=== PATIENT | female | born 1995 | race Caucasian/White ===

== ENCOUNTER 2023-08-16 07:45 | Day surgery (SDC) | payer MEDICAID, SELFPAY ==
[2023-08-12] MEDS: fentaNYL 100 MCG/2 ML VIAL IVP (10:15)
[2023-08-16] VITALS (11 sets, daily range): BP systolic 81–137; BP diastolic 36–80; PULSE 71–85; RESP 16–21; TEMP 36.2–37; O2SAT 95–100; BMI 29.8
--- NOTE | 2023-08-16 07:53 | W.ANESPRE ---
General Info Date of Service Date Performed: 08/16/23 Height: 5 ft 2.75 in Weight: 75.75 kg Body Mass Index (BMI): 29.8 Surgical Procedure: Operation Date: 08/16/23 08:55 Proposed Procedure Side Surgeon p Tonsillectomy & Adenoidectomy Micah Pope MD Meds Allergies and Home Medications Allergies Allergy/AdvReac Type Severity Reaction Status Date / Time bee venom protein (honey bee) Allergy Severe Anaphylaxis Verified 08/16/23 08:11 adhesive Allergy Skin Rash Verified 08/16/23 08:10 amoxicillin Allergy Difficulty Verified 08/16/23 08:10 breathing codeine Allergy Difficulty Verified 08/16/23 08:10 breathing Penicillins Allergy Difficulty Verified 08/16/23 08:10 breathing morphine AdvReac Intermediate Hallucinati Verified 08/16/23 08:10 ons nicotine [From Nicorette] AdvReac Per pt. Verified 08/16/23 08:10 states just a horrible reaction-unspecified. Home Medication Medication Instructions Recorded albuterol sulfate 2.5 mg/0.5 mL 5 mg inhalation Q4H PRN 07/18/23 solution for nebulization albuterol sulfate 90 mcg/actuation 2 puff inhalation Q6H PRN 07/18/23 aerosol inhaler (ProAir HFA) bupropion HCl 300 mg 24 hr tablet, 300 mg PO QAM 07/18/23 extended release calcium crb,[id number]-genis 1 cap PO DAILY 07/18/23 cholecalciferol (vitamin D3) 25 25 mcg PO DAILY 07/18/23 mcg (1,000 unit) capsule epinephrine 0.3 mg/0.3 mL 0.3 mg IM DIRECTED PRN 07/18/23 injection, auto-injector escitalopram oxalate 20 mg tablet 20 mg PO HS 07/18/23 (Lexapro) esomeprazole magnesium 40 mg 40 mg PO HS 07/18/23 capsule,delayed release (Nexium) fluticasone 100 mcg-salmeterol 50 1 inh inhalation BID 07/18/23 mcg/dose blistr powdr for inhalation (Advair Diskus) levothyroxine 200 mcg capsule 200 mcg PO DAILY 07/18/23 (Tirosint) multivitamin (One-A-Day Essential 1 tab PO DAILY 07/18/23 tablet) propranolol 40 mg tablet 40 mg PO DAILY 07/18/23 vitamin B complex (B 1 tab PO DAILY 07/18/23 Complex-Vitamin B12 tablet) Current Visit Medications: Current Medications Generic Name Dose Route Start Last Admin Trade Name Marnie PRN Reason Stop Dose Admin Ringer's Solution 1,000 mls @ 100 mls/hr 08/16/23 06:00 IV 09/14/23 23:59 INFUSION ANDRES Clindamycin Phosphate/Dextrose 900 mg in 50 mls @ 50 mls/hr 08/16/23 06:00 Cleocin In D5w IVPB 08/16/23 16:00 PREOP ANDRES Tranexamic Acid 1,000 mg/ 60 mls @ 360 mls/hr 08/16/23 06:00 Sodium Chloride IVPB 08/16/23 16:00 PREOP ANDRES IV Miscellaneous Supplies 1 each 08/16/23 06:00 Iv Access IV 09/14/23 23:59 DIRECTED ANDRES Sodium Chloride 0 ml 08/16/23 06:00 Normal Saline Flush 10 Ml Syr IV 09/14/23 23:59 PRN PRN Sodium Chloride 0 ml 08/16/23 06:00 Normal Saline 10 Ml Vial IJ 09/14/23 23:59 DIRECTED PRN Sterile Water 0 ml 08/16/23 06:00 Water,Injection,Sterile 10 Ml Vial IJ 09/14/23 23:59 DIRECTED PRN PFSH Active Problems Active Problems: Problem Status Onset Code 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 states was last seen 6 months-[facility] PTSD (post-traumatic stress disorder) Strep throat Tricuspid valve insufficiency Vitamin D deficiency Surgical History Surgical History (Updated 08/16/23 @ 08:08 by Alexa Charles RN) Hx of hernia repair Hx of thyroidectomy Hx of tubal ligation Hx of wisdom tooth extraction Tobacco Smoking/Tobacco Use Status: Former Tobacco Use Alcohol Alcohol Intake: never Substance Use Substance use: Never Substance use type: does not use Vital Signs and Lab Results Vital Signs Most Recent Vital Signs in EMR: Temp Pulse Resp BP Pulse Ox 37.0 C 76 18 137/80 100 08/16/23 07:58 08/16/23 07:58 08/16/23 07:58 08/16/23 07:58 08/16/23 07:58 Lab Results Blood Type / Crossmatch: No Data to Display Complete Blood Count: No Data to Display Complete Metabolic Panel: No Data to Display Liver Function Panel: No Data to Display Coagulation Panel: No Data to Display Cardiac Panel: No Data to Display Arterial Blood Gas: No Data to Display Venous Blood Gas: No Data to Display Pancreas Panel: No Data to Display Thyroid Panel: No Data to Display Infectious Disease: No Data to Display Blood Cultures: No Data to Display Toxicology Panel: No Data to Display Panel: No Data to Display Imaging and Studies Imaging and Studies Study information below may be from another EMR and interpreted by another provider. Please see original notes in EMR for more complete details. EKG Summary: 08/19: LVEF 63%, no valve issues. Anesthesia Assessment and Plan Anesthesia History Personal History: No History of Anesthesia Complications Family History: No Family History of Anesthesia Complications Exercise Tolerance Exercise Tolerance: Metabolic Equivalents>4 Cardiac & Pulmonary Exam Cardiac Exam: Normal S1/S2 Heart Sounds Pulmonary Exam: Clear Bilateral Breath Sounds Implantable Cardiac Device Does patient have a Pacemaker or an ICD?: No Airway Exam Known Difficult Airway: No Mallampati Class: 3 Mouth Opening: Narrow (< 3cm) Thyromental Distance: Greater than 3 cm Neck Range of Motion: Full ROM Neck Circumference: Normal Teeth Condition: Normal Dentition ASA Classification ASA Score: ASA 2 Emergency Case?: No NPO Status NPO Status: NPO Clears >2 hours, Solids >8 hours Status Status: Negative HCG Anesthesia Plan Resuscitation Status: Full Code Anesthesia Technique: General Anesthesia Airway Planned: Endotracheal Tube Monitors Used: Standard Monitors Preoperative Comments:: 27 yo female for t/a. Sig PMHx: HTN, PFO, asthma (albuterol, advair, does have a neb machine for when she has bad colds), GERD (Nexium, well controlled, took last night), hypothyroid (on replacement), POTS (states 10 grams of Na+ per day), anxiety/depression/PTSD. former smoker, never EtOH.
[2023-08-16] MEDS: Lactated Ringers 1,000 ML 100 ML IV (08:22)
[2023-08-16] MEDS: CLINDAMYCIN 900 MG/50 ML BAG 50 MG IVPB (08:27)
--- NOTE | 2023-08-16 08:50 | W.PM.DSUDISC ---
Date of service: 08/16/23 Time of Service: 08:50 Discharge Plan Disposition Patient Disposition: Home Condition: Good Discharge Details Reason For Visit: Tonsillectomy Attending Provider: Micah Pope Primary Care Provider: Brandon Branch Home Meds and New Rx's Prescriptions: No Action levothyroxine [Tirosint] 200 mcg capsule 200 mcg PO DAILY fluticasone propion-salmeterol [Advair Diskus] 100-50 mcg/dose blister with device 1 inh inhalation BID albuterol sulfate 2.5 mg/0.5 mL solution for nebulization 5 mg inhalation Q4H PRN bupropion HCl 300 mg tablet extended release 24 hr 300 mg PO QAM calcium crb,[id number]-genis 1 cap PO DAILY epinephrine 0.3 mg/0.3 mL auto-injector 0.3 mg IM DIRECTED PRN Rx Instructions: as a single dose; may repeat once escitalopram oxalate [Lexapro] 20 mg tablet 20 mg PO HS esomeprazole magnesium [Nexium] 40 mg capsule,delayed release(DR/EC) 40 mg PO HS multivitamin [One-A-Day Essential] Tablet 1 tab PO DAILY albuterol sulfate [ProAir HFA] 90 mcg/actuation HFA aerosol inhaler 2 puff inhalation Q6H PRN propranolol 40 mg tablet 40 mg PO DAILY vitamin B complex [B Complex-Vitamin B12] Tablet 1 tab PO DAILY cholecalciferol (vitamin D3) 25 mcg (1,000 unit) capsule 25 mcg PO DAILY Discharge Instructions Additional Instructions: Sarahy will need to be out of work until 08/22/2023. Please call my office with any questions or concerns. My cell phone number is [phone]. Please call with any questions or concerns. If you are unable to reach me and you feel it is an emergency, please call 911 or proceed to the emergency room Stand Alone Forms: ENT- T&A Instr. Toshia Referrals: Micah Pope MD [ [facility] STAFF PHYSICIAN] - (1 month, please call for appointment prior to patient's departure) Discharge Orders Discharge Orders: Discharge Order (Routine); Ordered 08/16/23 Ordered By: Micah Pope
--- NOTE | 2023-08-16 08:53 | W.PM.OP ---
Date of service: 08/16/23 Time of Service: 09:40 Operative Note Operative Note DATE OF PROCEDURE: 08/16/23 PRE-OP DIAGNOSIS: Chronic tonsillitis POST-OP DIAGNOSIS: same PROCEDURE: Tonsillectomy SURGEON: Micah Pope ANESTHESIA TYPE: General LMA/ETT Refer to Anesthesia Record ESTIMATED BLOOD LOSS: 20 PATHOLOGY: other (Tonsils) COMPLICATIONS: None Patient was transported to: PACU Patient's condition: stable Indications: Patient with the above problems. Options were explained to family regarding further management. She elected to undergo repair procedure. Consent was filled out and signed prior to surgery. H&P was reviewed. There have been no changes. All questions were answered prior to surgery. The patient confirms that she tolerates [place] without difficulty. Findings: 2+ cryptic tonsils with copious cryptic debris, significant scar tissue between the tonsil and the tonsillar fossa bilaterally, adenoids atrophic. Palate intact to inspection and palpation. Procedure Description: After obtaining an adequate level of general endotracheal anesthesia the patient was positioned in the supine position and prepped and draped in appropriate fashion. A Vivien Charles mouthgag was placed into the oral cavity and opened to reveal soft and hard palate revealing no evidence of an occult cleft palate. Adenoidal bed was examined revealing no significant residual adenoid with no evidence of inflammation. There was no Tornwaldt cyst. Each tonsil was pulled medially and posteriorly and 0.5% Marcaine with 1/100,000 epinephrine injected in the submucosal plane along the superior, anterior, and posterior edges of the tonsil. A 12 blade was then used to incise mucosa along the superior edge of the tonsil and a Magaly elevator used to disarticulate the tonsil from the superior tonsillar fossa. Arteaga blade was then used to strip the tonsil free from the tonsillar fossa down to the inferior pole at which point time a tonsillar snare was used to amputate the tonsil from the tonsillar fossa. Electrocautery suction tip catheter was then set on 15 W coagulation and used to achieve hemostasis within the tonsillar fossa. Once been accomplished bilaterally the Vivien Charles mouthgag was relaxed and reopened revealing no further bleeding. Valsalva failed to induce any further bleeding. The Vivien-Charles mouthgag was relaxed and removed and the patient was awakened and extubated by anesthesia and taken to recovery room in stable condition. I was present throughout the entire case.
--- NOTE | 2023-08-16 09:24 | TONSIL_PTH ---
PATIENT: Sarahy Morrell LOC: [facility] U#:[id number] AGE/SX: 27/F ROOM: RE08/16/[address]: Micah Pope MD : [id number] BED: DIS: 08/16/2023 SPEC #: [id number] RECD: 08/16/23 12:41 STATUS: ASHLEY REQ #: [id number] ARIANA: 08/16/23 09:[address]: Micah Pope DEPT: Surgical Specimen RECD BY: Lynn Odonnell ENTERED: 08/16/23 12:43 SP TYPE: TONSIL OTHR DR: Brandon Branch Tissues: 1 - TONSIL AGE 17 & OVER 2 - TONSIL AGE 17 & OVER Procedures: GROSS AND MICRO LEVEL 3 Comments: [id number]
[2023-08-16] MEDS: ePHEDrine 25 MG/5 ML Syringe IVP (09:51)
[2023-08-16] MEDS: fentaNYL 100 MCG/2 ML VIAL IVP (10:15)
[2023-08-16] MEDS: Ondansetron 4 MG/2 ML VIAL IVP (10:22)
--- NOTE | 2023-08-16 10:22 | W.ANESPOSTOP ---
Postoperative Evaluation Date, Time and Location Date Performed: 08/16/23 Time Performed: 10:22 Patient Location: PACU Vital Signs Most Recent Imported Vital Signs: Most Recent Vital Signs Temp Pulse Resp BP Pulse Ox 36.5 C 85 18 103/61 99 08/16/23 10:00 08/16/23 10:05 08/16/23 10:05 08/16/23 10:05 08/16/23 10:05 Pain Score Most Recent Pain Score: Most Recent Pain Score Pain Level 8 08/16/23 10:05 Assessment Mental Status: Awake (Alert & Oriented to Patient Baseline) Airway and Respiratory Function: Patent airway with normal (patient baseline) respiratory exam Cardiovascular Function: Hemodynamically Stable Hydration Status: Adequately Hydrated Nausea & Vomiting: No Nausea or Vomiting Pain: Pain is tolerable per patient Peripheral Nerve Block: Patient did not receive a nerve block
== END 2023-08-16 11:30 | disposition home or self-care (01) ==
PROVIDERS: PCP Family Medicine; Visit Provider Otolaryngology
PROC: (CPT 42826; principal; 2023-08-16 08:45)
DX: J35.01 Chronic tonsillitis (principal); E89.0 Postprocedural hypothyroidism; E55.9 Vitamin D deficiency, unspecified; G90.A Postural orthostatic tachycardia syndrome [POTS]; I10 Essential (primary) hypertension
CPT/HCPCS: 42826; 81025; 88304; J0131; J1100; J2001; J2250; J2405; J2704; J3010

== ENCOUNTER 2025-10-08 08:34 | Emergency (ER) | payer MEDICAID, SELFPAY ==
[2025-10-08 08:36] VITALS: BP 139/87; PULSE 114; RESP 18; TEMP 37.4; O2SAT 98
--- NOTE | 2025-10-08 08:45 | DI.CT_ITS ---
Exam(s) CT RENAL COLIC WO EXAM: CT RENAL COLIC WO CLINICAL HISTORY: L flank pain. TECHNIQUE: Imaging Protocol: Axial computed tomography images with coronal and sagittal reformatted images were created and reviewed CONTRAST MATERIAL: Intravenous: none Oral: None COMPARISON: No exams were available for comparison FINDINGS: VISUALIZED LUNG BASES: No nodules nor pleural effusions evident. ABDOMEN: There is no ascites. LIVER: There are no obvious focal hepatic lesions evident of this noninfused study. GALLBLADDER/BILIARY: No obvious gallbladder pathology. CBD is not dilated. PANCREAS: No evidence of pancreatic mass nor dilatation of the pancreatic duct. SPLEEN: Spleen is not enlarged. No obvious intrasplenic lesions. ADRENALS: There are no significant adrenal masses. KIDNEYS:No cysts evident. No solid renal masses. No intrarenal calculi. There is a 3 millimeter calcification left side of the pelvis which is intimately associated with the left ureter but is possibly a phlebolith given that there is no dilatation left ureter above this level. There are no calculi in the urinary bladder... ABDOMINAL AORTA: Abdominal aorta is not enlarged. LYMPH NODES: There is no retroperitoneal nor paraaortic adenopathy. ABDOMINAL WALL: No evidence of significant anterior abdominal wall nor inguinal hernia. GI: There is no evidence of bowel obstruction, free air, nor abscess. PELVIS: LYMPH NODES: There is no intrapelvic nor inguinal adenopathy. GI: No evidence of appendicitis.No evidence of sigmoid diverticulitis. URINARY BLADDER: No calculi nor obvious masses evident REPRODUCTIVE: Uterus and adnexal regions unremarkable. No free fluid in the pelvis. OSSEOUS: No significant osseous lesions. IMPRESSION: 1. There are no calculi seen in the kidneys and there is no hydronephrosis nor hydroureter. 2. On the left side there is a 3 millimeter calcification in the pelvis intimately associated with the intrapelvic left ureter. Difficult to determine if this is with in the nondilated left ureter or immediately adjacent to it related to the adjacent iliac artery or phlebolith. There is no hydronephrosis. There are no radiopaque calculi evident in the urinary bladder. 3. No evidence of appendicitis nor diverticulitis. Report called by myself to ER provider 10/08/2025 at 10:02 a.m. RADIATION DOSE DELIVERED: 575.78mGy.cm Total DLP DATA REPOSITORY: All CT scans at this facility are submitted to the National Radiology Data Registry (NRDR) Dose Index Registry (DIR) with the [employer] (ACR). RADIATION OPTIMIZATION: All CT scans at this facility use at least one of these dose optimization techniques: automated exposure control; mA and/or kV adjustment per patient size (includes targeted exams where dose is matched to clinical indication); or iterative reconstruction.
[2025-10-08] MEDS: Normal Saline 500 ML IV (09:26)
[2025-10-08 09:27] LABS: Abs Immature Grans 0.02 10^3/uL (0.0-0.06); HCT 37.9 % (36.0-46.0); HGB 12.7 g/dL (11.2-15.7); Immature Grans % 0.2 %; MCH 28.5 pg (27.0-33.0); MCHC 33.5 % (32.0-36.0); MCV 85 fL (80-95); MPV 9.4 fL (8.0-11.0); Platelet Count 270 10^3/uL (130-400); RBC 4.45 10^6/uL (3.93-5.22); RDW 13.2 % (11.7-14.6); RDW-SD 41.3 fL; WBC 10.70 10^3/uL (4.4-10.8)
[2025-10-08] MEDS: ACETAMINOPHEN 1,000 MG/100 ML BAG 400 MG IVPB (09:27)
[2025-10-08] MEDS: Ketorolac 15 MG/ML VIAL IVP (09:27)
[2025-10-08] MEDS: Ondansetron 4 MG/2 ML VIAL IVP (09:28)
[2025-10-08 09:41] LABS: Glucose Negative (Negative)
[2025-10-08 09:42] LABS: ALT 25 U/L (14-59); AST 12 U/L (15-37); Albumin 3.5 g/dL (3.4-5.0); Alkaline Phosphatase 107 U/L (46-116); Anion Gap 9.4 mmol/L (3-11); BUN 9 mg/dL (7-18); Bilirubin, Total 0.5 mg/dL (0.2-1.0); CO2 26.6 mmol/L (21.0-32.0); Calcium 8.9 mg/dL (8.5-10.1); Chloride 103 mmol/L (98-107); Glucose 113 mg/dL (74-106); Lipase 56 U/L (<78); Potassium 3.6 mmol/L (3.5-5.1); Sodium 139 mmol/L (136-145); Total Protein 7.4 g/dL (6.4-8.2)
[2025-10-08 09:57] LABS: C & S Indicated? No; WBC 0-2 HPF (0-5)
--- NOTE | 2025-10-08 10:09 | W.ED.GENAD ---
Discharge Plan Disposition Patient Disposition: Home Condition: Stable Discharge Details Clinical Impression: Left ureteral stone Primary Care Provider: Brandon Branch ED Provider: Luis Chan Home Meds and New Rx's Prescriptions: New ketorolac 10 mg tablet 10 mg PO QID 5 Days Qty: 20 0RF Rx Instructions: maximum total duration of 5 days from all oral, intranasal, or parenteral formulations tamsulosin 0.4 mg capsule 0.4 mg PO DAILY Qty: 30 0RF Continued levothyroxine [Tirosint] 200 mcg capsule 200 mcg PO DAILY fluticasone propion-salmeterol [Advair Diskus] 100-50 mcg/dose blister with device 1 inh inhalation BID albuterol sulfate 2.5 mg/0.5 mL solution for nebulization 5 mg inhalation Q4H PRN bupropion HCl 300 mg tablet extended release 24 hr 300 mg PO QAM calcium crb,[id number]-[id number]-genis 1 cap PO DAILY epinephrine 0.3 mg/0.3 mL auto-injector 0.3 mg IM DIRECTED PRN Rx Instructions: as a single dose; may repeat once escitalopram oxalate [Lexapro] 20 mg tablet 20 mg PO HS esomeprazole magnesium [Nexium] 40 mg capsule,delayed release(DR/EC) 40 mg PO HS multivitamin [One-A-Day Essential] Tablet 1 tab PO DAILY albuterol sulfate [ProAir HFA] 90 mcg/actuation HFA aerosol inhaler 2 puff inhalation Q6H PRN propranolol 40 mg tablet 40 mg PO DAILY vitamin B complex [B Complex-Vitamin B12] Tablet 1 tab PO DAILY cholecalciferol (vitamin D3) 25 mcg (1,000 unit) capsule 25 mcg PO DAILY Discharge Instructions Instructions: Ketorolac (Systemic), Tamsulosin, Kidney Stone, Adult ED Additional Instructions: You were seen in the emergency department for your left ureteral stone. I am starting you on a medicine called ketorolac which is an anti-inflammatory, take this as directed for 5 days-once you run out substitute for 100 mg ibuprofen for this medication also on a 6-hour schedule or 4 times per day. Take the prescribed tamsulosin which helps dilate your urinary system, stay well-hydrated, purchase [id number] AZO to help numb the urethral tract. Take 1000 mg of Tylenol 4 times per day, follow-up with urology for any complications, return here for any urinary retention or developing fever. Stand Alone Forms: Portal Information Referrals: Brandon Branch [Primary Care Provider, Medicine] Ariseto Middleton MD [ [facility] STAFF PHYSICIAN, Urology] Discharge Data Discharge Date/Time-TO BE ENTERED AT DEPARTURE: 10/08/25 10:36 HPI General Date/Time Provider Initiated Documentation: 10/08/25 08:42. HPI Narrative: 30 year-old female presents to ED today by POV/ambulating with a chief complaint of stabbing left flank pain with onset in the middle the night that woke her up, denies urinary symptoms. Quality described as sharp stabbing pain that caused 1 episode of vomiting this morning, no radiation to dysuria, hematuria, fever, intractable nausea or vomiting, chest pain, shortness of breath. Severity is described as severe. Palliating factors include Zofran at 0315 with no further vomiting. Provoking factors include nothing specific. Events leading up to the incident/Associated Symptoms: Patient denies known kidney stones. Patient not anticoagulated. Related Data Home Medications Medication Instructions Recorded Confirmed albuterol sulfate 2.5 mg/0.5 mL 5 mg inhalation Q4H PRN 07/18/23 08/16/23 solution for nebulization albuterol sulfate 90 mcg/actuation 2 puff inhalation Q6H PRN 07/18/23 08/16/23 aerosol inhaler (ProAir HFA) bupropion HCl 300 mg 24 hr tablet, 300 mg PO QAM 07/18/23 08/16/23 extended release calcium crb,bfr-[id number]-genis 1 cap PO DAILY 07/18/23 08/16/23 cholecalciferol (vitamin D3) 25 25 mcg PO DAILY 07/18/23 08/16/23 mcg (1,000 unit) capsule epinephrine 0.3 mg/0.3 mL 0.3 mg IM DIRECTED PRN 07/18/23 08/16/23 injection, auto-injector escitalopram oxalate 20 mg tablet 20 mg PO HS 07/18/23 08/16/23 (Lexapro) esomeprazole magnesium 40 mg 40 mg PO HS 07/18/23 08/16/23 capsule,delayed release (Nexium) fluticasone 100 mcg-salmeterol 50 1 inh inhalation BID 07/18/23 08/16/23 mcg/dose blistr powdr for inhalation (Advair Diskus) levothyroxine 200 mcg capsule 200 mcg PO DAILY 07/18/23 08/16/23 (Tirosint) multivitamin (One-A-Day Essential 1 tab PO DAILY 07/18/23 08/16/23 tablet) propranolol 40 mg tablet 40 mg PO DAILY 07/18/23 08/16/23 vitamin B complex (B 1 tab PO DAILY 07/18/23 08/16/23 Complex-Vitamin B12 tablet) ketorolac 10 mg tablet 10 mg PO QID 5 days #20 tabs 10/08/25 tamsulosin 0.4 mg capsule 0.4 mg PO DAILY #30 caps 10/08/25 Previous Rx's Medication Instructions Recorded ketorolac 10 mg tablet 10 mg PO QID 5 days #20 tabs 10/08/25 tamsulosin 0.4 mg capsule 0.4 mg PO DAILY #30 caps 10/08/25 Allergies Allergy/AdvReac Type Severity Reaction Status Date / Time bee venom protein (honey bee) Allergy Severe Anaphylaxis Verified 10/08/25 08:40 adhesive Allergy Skin Rash Verified 10/08/25 08:40 amoxicillin Allergy Difficulty Verified 10/08/25 08:40 breathing codeine Allergy Difficulty Verified 10/08/25 08:40 breathing Penicillins Allergy Difficulty Verified 10/08/25 08:40 breathing morphine AdvReac Intermediate Hallucinati Verified 10/08/25 08:40 ons nicotine (From Nicorette) AdvReac Per pt. Verified 10/08/25 08:40 states just a horrible reaction-unspecified. General Stated Complaint: FlankPain KERLINE: 3 Review of Systems All systems reviewed & are unremarkable except as noted in HPI and below Exam Narrative Exam Narrative: GENERAL APPEARANCE: Well-nourished, non-toxic, awake and alert, atraumatic, moderate acute distress. SKIN: Warm, pink, dry, intact, without rashes/lesions/ulcerations. HEAD: Normocephalic, atraumatic, normal hair distribution for gender/age. EYES: Normal conjunctiva, no exudates on lids/lashes. ENT: Nares patent, no circumoral cyanosis, no facial swelling NECK: Supple, trachea midline, painless cervical ROM. LUNGS/CHEST: Lungs CTA bilaterally-no rhonchi/rales/wheeze diffusely, non-labored respirations, normal A/P diameter, symmetrical expansion, no chest wall deformity HEART (CV/PV): Regular rate and rhythm without murmur, no peripheral edema, no JVD. ABDOMEN: Soft, non-distended, no guarding left CVA tenderness to percussion left lower quadrant abdominal tenderness. MSK: Normal ROM, no swelling/deformity to bilateral UEs or LEs, moving all extremities without weakness, no cyanosis, spine midline without tenderness, normal curvature. NEURO: Mental Status AAOx4 - alert to person, place, time, events No facial droop, no forehead involvement. Motor: No focal weakness - strength 5/5 in bilateral UEs and LEs, proximal and distal, symmetric. Sensory: sensation intact to light touch globally. Gait normal: patient ambulated without ataxia into ED room. PSYCH: euthymic, cooperative, pleasant, appropriate speech Course Vital Signs Vital signs: Vital Signs Temperature 37.4 C 10/08/25 08:36 Pulse 114 H 10/08/25 08:36 Respiratory Rate 18 10/08/25 08:36 Blood Pressure 139/87 10/08/25 08:36 Pulse Oximetry 98 10/08/25 08:36 Temperature 37.4 C 10/08/25 08:36 Temperature Source Tympanic 10/08/25 08:36 Pulse 114 H 10/08/25 08:36 Respiratory Rate 18 10/08/25 08:36 Blood Pressure 139/87 10/08/25 08:36 Pulse Oximetry 98 10/08/25 08:36 Oxygen Delivery Method Room Air 10/08/25 08:36 Oxygen Flow Rate 0 10/08/25 08:36 Pain Level 8 10/08/25 09:28 Lab/Test Results Lab/Test Results: Laboratory Tests Range/Units 10/08/25 10/08/25 08:47 09:14 WBC (4.4-10.8) 10^3/uL 10.70 RBC (3.93-5.22) 10^6/uL 4.45 Hgb (11.2-15.7) g/dL 12.7 Hct (36.0-46.0) % 37.9 MCV (80-95) fL 85 MCH (27.0-33.0) pg 28.5 MCHC (32.0-36.0) % 33.5 RDW (11.7-14.6) % 13.2 Plt Count (130-400) 10^3/uL 270 MPV (8.0-11.0) fL 9.4 Immature Gran % % 0.2 Neutrophils % % 64.2 Lymphocytes % % 25.2 Monocytes % % 9.0 Eosinophils % % 1.0 Basophils % % 0.4 Nucleated RBC % (0.0-0.3) % 0.0 Absolute Neutrophils (1.2-6.7) 10^3/uL 6.87 H Absolute Lymphocytes (1.2-3.4) 10^3/uL 2.70 Absolute Monocytes (0.1-0.8) 10^3/uL 0.96 H Absolute Eosinophils (0.0-0.7) 10^3/uL 0.11 Absolute Basophils (0.0-0.2) 10^3/uL 0.04 Sodium (136-145) mmol/L 139 Potassium (3.5-5.1) mmol/L 3.6 Chloride (98-107) mmol/L 103 Carbon Dioxide (21.0-32.0) mmol/L 26.6 Anion Gap (3-11) mmol/L 9.4 BUN (7-18) mg/dL 9 Creatinine (0.55-1.02) mg/dL 1.0 Est GFR (CKD-EPI 2020) (mL/min/1.73m2) 76.76 Glucose (74-106) mg/dL 113 H Calcium (8.5-10.1) mg/dL 8.9 Total Bilirubin (0.2-1.0) mg/dL 0.5 AST (15-37) U/L 12 L ALT (14-59) U/L 25 Alkaline Phosphatase (46-116) U/L 107 Total Protein (6.4-8.2) g/dL 7.4 Albumin (3.4-5.0) g/dL 3.5 Lipase (<78) U/L 56 Urine Color (Yellow) Yellow Urine Clarity (Clear) Clear Urine pH (5-8) 6.5 Ur Specific [place] (1.005-1.025) 1.010 Urine Protein (Neg-Trace) mg/dL Negative Urine Ketones (Negative) mg/dL Negative Urine Blood (Negative) Small H Urine Nitrite (Negative) Negative Urine Bilirubin (Negative) Negative Urine Urobilinogen (Up to 0.2) mg/dL 0.2 Ur Leukocyte Esterase (Negative) Negative Urine RBC (0-2) HPF 5-10 H Urine WBC (0-5) HPF 0-2 Ur Epithelial Cells (Negative) HPF Many Urine Crystals (Negative) HPF Negative Urine Bacteria (Negative) HPF Few Urine Casts (Negative) LPF Negative Urine Mucus (Negative) Moderate Ur Culture Indicated? No Urine Glucose (Negative) mg/dL Negative Medical Decision Making This dictation utilizes [id number] dictation software and may contain unedited grammatical errors. 30 year-old female presents to ED today by POV/ambulating with a chief complaint of stabbing left flank pain with onset in the middle the night that woke her up, denies urinary symptoms. Quality described as sharp stabbing pain that caused 1 episode of vomiting this morning, no radiation to dysuria, hematuria, fever, intractable nausea or vomiting, chest pain, shortness of breath. Severity is described as severe. Palliating factors include Zofran at 0315 with no further vomiting. Provoking factors include nothing specific. Events leading up to the incident/Associated Symptoms: Patient denies known kidney stones. Patients' medical history: POTS, hypertension, asthma, GERD, hematuria, history of tubal ligation and hernia repair. Family and social history: Noncontributory. Pertinent exam findings / vital signs include left CVA tenderness to percussion, left lower quadrant abdominal tenderness, negative Reyes sign, benign cardiopulmonary exam, mildly tachycardic on arrival resolved quickly with rest. Differential / pathologies of concern include renal stone, pyelonephritis, UTI, less likely bowel pathology, possible lumbar musculoskeletal pain. Diagnostic studies of: - CBC, CMP, lipase, UA, CT renal colic. - CBC shows no leukocytosis - Metabolic panel shows no LISSETTE - Lipase within normal limits - Has small amount of blood in her urine, no UTI - CT renal colic study shows that there is a left 3 mm stone intimately associated with the left ureter likely causing her symptoms Interventions of: - 4 mg IV Zofran, 15 mg IV ketorolac, 1 g IV APAP, 0.4 mg p.o. tamsulosin, 500 mL IVF NS. Rx for ketorolac and tamsulosin. ED Course/Assessment/Plan: 28-year-old female presents with acute onset of left flank pain and urinary symptoms suddenly in the middle of the night, CT renal study shows a 3 mm stone at the ureteral pelvis likely causing her symptoms, her urine shows no signs of UTI and her CBC is reassuring for no systemic infection, she received some symptomatic treatment here and I started her on tamsulosin as well as 5 days of Toradol and recommend she stay well-hydrated, take [id number] Azo for symptomatic relief and follow-up with provided urology practice number for any complications and strict return criteria for here for any developing fevers, worsening despite treatment or urinary retention. Findings not consistent with obstructive uropathy, stone that will be too large to pass, sepsis, UTI. Disposition of Left Ureteral Stone. Patient verbalized understanding of the plan and return to ED criteria and engaged in shared decision making. Medical Records Medical records reviewed: Yes I reviewed the patient's medical records. Imaging Data Radiologic Study: Attestation: I personally reviewed and interpreted this imaging study as follows: Imaging: CT Scan Radiologist's impression: EXAM: CT RENAL COLIC WO CLINICAL HISTORY: L flank pain. TECHNIQUE: Imaging Protocol: Axial computed tomography images with coronal and sagittal reformatted images were created and reviewed CONTRAST MATERIAL: Intravenous: none Oral: None COMPARISON: No exams were available for comparison FINDINGS: VISUALIZED LUNG BASES: No nodules nor pleural effusions evident. ABDOMEN: There is no ascites. LIVER: There are no obvious focal hepatic lesions evident of this noninfused study. GALLBLADDER/BILIARY: No obvious gallbladder pathology. CBD is not dilated. PANCREAS: No evidence of pancreatic mass nor dilatation of the pancreatic duct. SPLEEN: Spleen is not enlarged. No obvious intrasplenic lesions. ADRENALS: There are no significant adrenal masses. KIDNEYS:No cysts evident. No solid renal masses. No intrarenal calculi. There is a 3 millimeter calcification left side of the pelvis which is intimately associated with the left ureter but is possibly a phlebolith given that there is no dilatation left ureter above this level. There are no calculi in the urinary bladder... ABDOMINAL AORTA: Abdominal aorta is not enlarged. LYMPH NODES: There is no retroperitoneal nor paraaortic adenopathy. ABDOMINAL WALL: No evidence of significant anterior abdominal wall nor inguinal hernia. GI: There is no evidence of bowel obstruction, free air, nor abscess. PELVIS: LYMPH NODES: There is no intrapelvic nor inguinal adenopathy. GI: No evidence of appendicitis.No evidence of sigmoid diverticulitis. URINARY BLADDER: No calculi nor obvious masses evident REPRODUCTIVE: Uterus and adnexal regions unremarkable. No free fluid in the pelvis. OSSEOUS: No significant osseous lesions. IMPRESSION: 1. There are no calculi seen in the kidneys and there is no hydronephrosis nor hydroureter. 2. On the left side there is a 3 millimeter calcification in the pelvis intimately associated with the intrapelvic left ureter. Difficult to determine if this is with in the nondilated left ureter or immediately adjacent to it related to the adjacent iliac artery or phlebolith. There is no hydronephrosis. There are no radiopaque calculi evident in the urinary bladder. 3. No evidence of appendicitis nor diverticulitis. Report called by myself to ER provider 10/08/2025 at 10:02 a.m. Lab Data Lab results reviewed: Yes I reviewed the patient's lab results. Labs: Laboratory Tests Range/Units 10/08/25 10/08/25 08:47 09:14 WBC (4.4-10.8) 10^3/uL 10.70 RBC (3.93-5.22) 10^6/uL 4.45 Hgb (11.2-15.7) g/dL 12.7 Hct (36.0-46.0) % 37.9 MCV (80-95) fL 85 MCH (27.0-33.0) pg 28.5 MCHC (32.0-36.0) % 33.5 RDW (11.7-14.6) % 13.2 Plt Count (130-400) 10^3/uL 270 MPV (8.0-11.0) fL 9.4 Immature Gran % % 0.2 Neutrophils % % 64.2 Lymphocytes % % 25.2 Monocytes % % 9.0 Eosinophils % % 1.0 Basophils % % 0.4 Nucleated RBC % (0.0-0.3) % 0.0 Absolute Neutrophils (1.2-6.7) 10^3/uL 6.87 H Absolute Lymphocytes (1.2-3.4) 10^3/uL 2.70 Absolute Monocytes (0.1-0.8) 10^3/uL 0.96 H Absolute Eosinophils (0.0-0.7) 10^3/uL 0.11 Absolute Basophils (0.0-0.2) 10^3/uL 0.04 Sodium (136-145) mmol/L 139 Potassium (3.5-5.1) mmol/L 3.6 Chloride (98-107) mmol/L 103 Carbon Dioxide (21.0-32.0) mmol/L 26.6 Anion Gap (3-11) mmol/L 9.4 BUN (7-18) mg/dL 9 Creatinine (0.55-1.02) mg/dL 1.0 Est GFR (CKD-EPI 2020) (mL/min/1.73m2) 76.76 Glucose (74-106) mg/dL 113 H Calcium (8.5-10.1) mg/dL 8.9 Total Bilirubin (0.2-1.0) mg/dL 0.5 AST (15-37) U/L 12 L ALT (14-59) U/L 25 Alkaline Phosphatase (46-116) U/L 107 Total Protein (6.4-8.2) g/dL 7.4 Albumin (3.4-5.0) g/dL 3.5 Lipase (<78) U/L 56 Urine Color (Yellow) Yellow Urine Clarity (Clear) Clear Urine pH (5-8) 6.5 Ur Specific [place] (1.005-1.025) 1.010 Urine Protein (Neg-Trace) mg/dL Negative Urine Ketones (Negative) mg/dL Negative Urine Blood (Negative) Small H Urine Nitrite (Negative) Negative Urine Bilirubin (Negative) Negative Urine Urobilinogen (Up to 0.2) mg/dL 0.2 Ur Leukocyte Esterase (Negative) Negative Urine RBC (0-2) HPF 5-10 H Urine WBC (0-5) HPF 0-2 Ur Epithelial Cells (Negative) HPF Many Urine Crystals (Negative) HPF Negative Urine Bacteria (Negative) HPF Few Urine Casts (Negative) LPF Negative Urine Mucus (Negative) Moderate Ur Culture Indicated? No Urine Glucose (Negative) mg/dL Negative PFSH All Active Problems (Updated 10/08/25 @ 10:16 by HAWA Poole) Left ureteral stone (Acute) Recurrent streptococcal pharyngitis (Acute) Medical History (Updated 10/08/25 @ 10:16 by HAWA Poole) PFO (patent foramen ovale) POTS (postural orthostatic tachycardia syndrome) Per pt. states was last seen 6 months-[facility] Depression Tricuspid valve insufficiency Intention tremor Hypertension Strep throat Elevated blood pressure reading Asthma Other chronic pain Vitamin D deficiency Hypothyroidism GERD (gastroesophageal reflux disease) PTSD (post-traumatic stress disorder) Hematuria, unspecified Anxiety disorder, unspecified Surgical History (Updated 08/16/23 @ 09:46 by Micah Pope MD) Hx of tonsillectomy 08/16/2023 Hx of wisdom tooth extraction Hx of thyroidectomy Hx of tubal ligation Hx of hernia repair Social History Smoking/Tobacco Use Status: Former Tobacco Use Quit Date: 05/28/22 Smoking risk assessment performed?: Yes Alcohol Intake: never Drug use: Never Substance use type: does not use Housing: house Do you feel safe at home: Yes Do you feel safe in your relationship?: Yes
[2025-10-08 10:30] VITALS: BP 133/57; PULSE 88; RESP 16; O2SAT 100
== END 2025-10-08 10:36 | disposition home or self-care (01) ==
LOC: ER 10:58
PROVIDERS: Emergency Provider Physician Assistant; PCP Family Medicine
DX: N20.1 Calculus of ureter (principal)
CPT/HCPCS: 99284 ×2; 96374; 96375; 80053; 83690; 96361; 74176; 81003; 81015; 85025; J0131; J1885; J2405